=== PATIENT | female | born 1950 | race Caucasian/White ===

== ENCOUNTER 2017-07-07 00:40 | Inpatient (IN) | payer MEDICARE ==
[~2017-07-07] VITALS: Ht 157.5 cm; Wt 104.0 kg
[~2017-07-07 00:40] MED LIST: AMLO10TA2 PO; ASCO10004 PO; ASPI-496 PO; ATEN50TA41 PO; CHOL10003 PO; CIPR500T87 PO; CLON0.1T PO; ENAL10TA71 PO; METF750T PO; OXYC1TAB7 PO; PROM25TA10 PO; ZINC50TA40 PO
[2017-07-07] MEDS ORDERED: PROMETHAZINE 25 MG/ML, 1ML ONE ×2 (01:17→11:17)
[2017-07-07] MEDS ORDERED: MORPHINE SULFATE 4 MG/ML, 1ML ONE (01:17)
[2017-07-07] MEDS ORDERED: MORPHINE SULFATE 4 MG/ML, 1ML IVPush PRN ×2 (01:30→06:30)
[2017-07-07] MEDS ORDERED: PROMETHAZINE 25 MG/ML, 1ML IM ONE (01:30)
[2017-07-07 02:02] LABS: HEMATOCRIT 48.9 % (34.6-47.8); HEMOGLOBIN 15.8 g/dL (11.7-16.4); WHITE BLOOD COUNT 10.8 x10^3/uL (3.4-10)
[2017-07-07 02:10] LABS: BLOOD UREA NITROGEN 31 mg/dL (7-18)
[2017-07-07 02:13] LABS: ASPARTATE AMINO TRANSFERASE 10 U/L (15-37)
[2017-07-07 03:17] LABS: PATH.CAST-FLAG NOT PRESENT; SPERM-FLAG NOT PRESENT; SRC-FLAG NOT PRESENT; XTAL-FLAG NOT PRESENT; YLC-FLAG NOT PRESENT
[2017-07-07] MEDS ORDERED: SODIUM CHLORIDE 0.9% 1,000 ML IV ONE (06:10)
[2017-07-07] MEDS ORDERED: ONDANSETRON 2MG/ML, 2ML IVPush PRN ×2 (06:30→08:00)
[2017-07-07 06:54] VITALS: BP 125/82
[2017-07-07] MEDS: ENOXAPARIN 30 MG/0.3 ML SQ SCH (08:00)
[2017-07-07] MEDS ORDERED: DOCUSATE 100 MG CAPSULE PO PRN (08:00)
[2017-07-07] MEDS ORDERED: BISACODYL 10 MG SUPP PR PRN (08:00)
[2017-07-07] MEDS ORDERED: ALBUTEROL SULFATE 2.5 MG/3 ML NPPB PRN (08:00)
[2017-07-07] MEDS ORDERED: PROMETHAZINE 25 MG/ML, 1ML IM PRN (08:00)
[2017-07-07] MEDS ORDERED: ENALAPRILAT 1.25 MG/ML, 2ML IVPush PRN (08:00)
[2017-07-07] MEDS ORDERED: HYDROmorphone 1 MG/ML, 1ML IV PRN ×2 (08:00→10:30)
[2017-07-07] MEDS ORDERED: ACETAMINOPHEN 325 MG TABLET PO PRN ×3 (08:00→10:30)
[2017-07-07] MEDS ORDERED: morphine SULFATE 10 MG/ML, 1ML IVPush PRN (08:00)
[2017-07-07] MEDS ORDERED: EPHEDRINE 50 MG/ML, 1ML IVPush PRN (08:00)
[2017-07-07] MEDS ORDERED: HYDROcodone/APAP 5/325 TABLET PO PRN (08:00)
[2017-07-07] MEDS ORDERED: hydrALAzine 20 MG/ML, 1ML IV PRN ×2 (08:00→10:30)
[2017-07-07] MEDS ORDERED: FENTANYL PF 100 MCG/2ML IV PRN ×2 (08:00→10:30)
[2017-07-07] MEDS ORDERED: LABETALOL 5MG/ML, 20ML IV PRN ×2 (08:00→10:30)
[2017-07-07] MEDS ORDERED: OXYcodone 5 MG/5 ML ORAL.SOL UDC PO PRN ×2 (08:00→10:30)
[2017-07-07] MEDS ORDERED: TRAZODONE 50MG TABLET PO PRN (08:00)
[2017-07-07] MEDS ORDERED: METOPROLOL 1 MG/ML, 5ML IV PRN (08:00)
[2017-07-07 08:30] VITALS: BP 143/84
[2017-07-07] MEDS: ATENOLOL 50 MG TABLET PO SCH ×2 (08:35→20:23)
[2017-07-07] MEDS: ASPIRIN 81 MG TABLET EC PO SCH (08:35)
[2017-07-07] MEDS: ENALAPRIL 10 MG TABLET PO SCH (08:35)
[2017-07-07] MEDS: AMLODIPINE 5 MG TABLET PO SCH (08:35)
[2017-07-07] MEDS ORDERED: SCOPOLAMINE PATCH, 1.5MG PATCH.TD72 TD ONE (09:55)
[2017-07-07] MEDS ORDERED: DEXAMETHASONE 4 MG/ML, 1ML ONE (09:57)
[2017-07-07] MEDS ORDERED: ROCURONIUM 10 MG/ML ONE (09:57)
[2017-07-07] MEDS ORDERED: PROPOFOL 10 MG/ML, 20ML ONE (09:57)
[2017-07-07] MEDS ORDERED: GLYCOPYRROLATE 0.2MG/1ML ONE (09:57)
[2017-07-07] MEDS ORDERED: PHENYLEPHRINE 10 MG/ML ONE (09:57)
[2017-07-07] MEDS ORDERED: NEOSTIGMINE 1 MG/ML, 10ML ONE (09:57)
[2017-07-07] MEDS ORDERED: PROPOFOL 10 MG/ML, 50ML ONE (09:57)
[2017-07-07] MEDS ORDERED: METOCLOPRAMIDE 5 MG/ML, 2ML ONE (09:57)
[2017-07-07] MEDS ORDERED: ONDANSETRON 2MG/ML, 2ML ONE (09:57)
[2017-07-07] MEDS ORDERED: FENTANYL PF 100 MCG/2ML ONE (10:01)
[2017-07-07] MEDS ORDERED: MIDAZOLAM 1 MG/ML, 2ML ONE (10:01)
[2017-07-07] MEDS ORDERED: PROMETHAZINE 25 MG/ML, 1ML IV PRN (10:30)
[2017-07-07] MEDS ORDERED: MEPERIDINE/PF 25MG/0.5ML IVPush PRN (10:30)
[2017-07-07] MEDS ORDERED: PHENAZOPYRIDINE 200 MG TABLET PO PRN (11:00)
[2017-07-07] MEDS ORDERED: OPIUM/BELLADONNA SUPP.RECT 16.2-60 MG PR PRN (11:00)
[2017-07-07] MEDS ORDERED: OPIUM/BELLADONNA SUPP.RECT 16.2-60 MG ONE (11:17)
[2017-07-07] MEDS ORDERED: PHENAZOPYRIDINE 200 MG TABLET ONE (11:18)
[2017-07-07] MEDS ORDERED: OXYcodone 5 MG/5 ML ORAL.SOL UDC ONE (11:18)
[2017-07-07] MEDS ORDERED: ACETAMINOPHEN 325 MG TABLET ONE (11:18)
[2017-07-07 12:20] VITALS: BP 145/81
[2017-07-07 18:29] VITALS: BP 149/83
[2017-07-07 20:24] VITALS: BP 142/81
[2017-07-08 00:26] VITALS: BP 118/68
[2017-07-08 04:30] VITALS: BP 111/63
[2017-07-08 05:40] LABS: BLOOD UREA NITROGEN 32 mg/dL (7-18)
[2017-07-08 05:42] LABS: HEMATOCRIT 45.2 % (34.6-47.8); HEMOGLOBIN 14.7 g/dL (11.7-16.4); WHITE BLOOD COUNT 9.1 x10^3/uL (3.4-10)
[2017-07-08] MEDS: ENOXAPARIN 30 MG/0.3 ML SQ SCH (07:29)
[2017-07-08 08:06] VITALS: BP 124/83
[2017-07-08] MEDS: ASPIRIN 81 MG TABLET EC PO SCH (09:48)
[2017-07-08] MEDS: ATENOLOL 50 MG TABLET PO SCH (09:48)
[2017-07-08] MEDS: AMLODIPINE 5 MG TABLET PO SCH (09:49)
[2017-07-08] MEDS: ENALAPRIL 10 MG TABLET PO SCH (09:49)
[2017-07-08 12:43] VITALS: BP 117/71
[2017-07-08] MEDS ORDERED: BISACODYL 10 MG SUPP PR PRN (14:30)
[2017-07-08] MEDS ORDERED: ACETAMINOPHEN 325 MG TABLET PO PRN (14:30)
[2017-07-08] MEDS ORDERED: ENALAPRILAT 1.25 MG/ML, 2ML IVPush PRN (14:30)
[2017-07-08] MEDS ORDERED: DOCUSATE 100 MG CAPSULE PO PRN (14:30)
[2017-07-08] MEDS ORDERED: OPIUM/BELLADONNA SUPP.RECT 16.2-60 MG PR PRN (14:30)
[2017-07-08] MEDS ORDERED: morphine SULFATE 10 MG/ML, 1ML IVPush PRN (14:30)
[2017-07-08] MEDS ORDERED: TRAZODONE 50MG TABLET PO PRN (14:30)
[2017-07-08 16:45] VITALS: BP 117/71
== END 2017-07-08 17:01 | disposition home or self-care (01) | DRG 669 ==
LOC: ED 01:42 → EDIP 06:10 → 4NOR 06:30
PROVIDERS: ADMIT Hospitalist; ATTEND Internal Medicine
PROC: 0T768DZ Dilation of Right Ureter with Intraluminal Device, Via Natural or Artificial Opening Endoscopic (ICD-10-PCS; 2017-07-07)
PROC: BT1D1ZZ Fluoroscopy of Right Kidney, Ureter and Bladder using Low Osmolar Contrast (ICD-10-PCS; 2017-07-07)
PROC: 0TC68ZZ Extirpation of Matter from Right Ureter, Via Natural or Artificial Opening Endoscopic (ICD-10-PCS; principal; 2017-07-07 09:30)
DX: N13.2 Hydronephrosis with renal and ureteral calculous obstruction (principal); Z68.41 Body mass index [BMI] 40.0-44.9, adult; N17.9 Acute kidney failure, unspecified; E88.81 Metabolic syndrome and other insulin resistance; E11.22 Type 2 diabetes mellitus with diabetic chronic kidney disease; D25.9 Leiomyoma of uterus, unspecified; N39.0 Urinary tract infection, site not specified; I12.9 Hypertensive chronic kidney disease with stage 1 through stage 4 chronic kidney disease, or unspecified chronic kidney disease; K57.90 Diverticulosis of intestine, part unspecified, without perforation or abscess without bleeding; N18.9 Chronic kidney disease, unspecified; E66.9 Obesity, unspecified; Z87.442 Personal history of urinary calculi; Z88.2 Allergy status to sulfonamides; Z90.49 Acquired absence of other specified parts of digestive tract
CPT/HCPCS: 36415; 74176; 74420; 80048; 80053; 81001; 82360; 83036; 83690; 83735; 84100; 85025; 87086; 88300; 96372; J1100; J2250; J2405; J2550; J2704; J2710; J3010; J3490; C1758; C1769; C2617; J2370; J2765